=== PATIENT | female | born 1995 | race American Indian/Alaskan Native ===

== ENCOUNTER 2017-10-12 16:45 | Emergency (ER) | payer SELFPAY ==
[~2017-10-12] VITALS: Ht 157.5 cm; Wt 63.5 kg
[2017-10-12 16:49] VITALS: BP_SYST 128
[2017-10-12 17:29] LABS: CALCIUM 9.1 mg/dL (8.4-11.0); CREATININE 0.62 mg/dL (0.55-1.30); POTASSIUM 3.3 mmol/L (3.5-5.1)
[2017-10-12 18:18] VITALS: BP_SYST 113
== END 2017-10-12 18:18 | disposition home or self-care (01) ==
LOC: SED 16:45
DX: G40.909 Epilepsy, unspecified, not intractable, without status epilepticus (principal); R03.0 Elevated blood-pressure reading, without diagnosis of hypertension
CPT/HCPCS: 36415; 80048; 80156-TC; 99284